=== PATIENT | male | born 1945 | race Caucasian/White ===

== ENCOUNTER 2018-07-22 12:01 | Day surgery (SDC) | payer MEDICARE, BC ==
[2018-07-19 16:37] VITALS: BMI 29.1
[~2018-07-22 12:01] MED LIST: LACTATED RINGERS 1,000 ML IV SCH
[2018-07-22 13:17] VITALS: RESP 16; TEMP 98.1
[2018-07-22] MEDS ORDERED: PROPOFOL 10 MG/ML 20 ML VIAL IV ONE (14:04)
--- NOTE | 2018-07-22 14:24 | P.PCN ---
Date of Procedure: 07/22/18 Procedure(s) Performed: BRIEF HISTORY: Patient is a 73-year-old pleasant white male, scheduled for an elective colonoscopy as a part of Hemoccult-positive stool. PROCEDURE PERFORMED: Colonoscopy. PREOPERATIVE DIAGNOSIS: Hemoccult positive stool. IV sedation per Anesthesia. PROCEDURE: After informed consent was obtained, the patient, was brought into the endoscopy unit. IV sedation was administered by Anesthesia under continuous monitoring. Digital rectal examination was normal. Initially the Olympus CF- 160 flexible video colonoscope was then inserted in the rectum, gradually advanced into the cecum without any difficulty. Careful examination was performed as the scope was gradually being withdrawn. Ileocecal valve and the appendiceal orifice were visualized and appeared normal. Prep was excellent. Mucosa of the cecum, ascending colon, transverse colon, descending colon, sigmoid colon, and rectum appeared normal. Sigmoid diverticulosis. Retroflexion was performed in the rectum and no lesions were seen. The patient tolerated the procedure well. IMPRESSION: Normal-appearing colon from rectum to cecum with no evidence of colorectal neoplasia. Scattered sigmoid diverticulosis RECOMMENDATIONS: Findings of this examination were discussed with the patient as well as his family. He was advised to have a repeat screening colonoscopy in 10 years..
[2018-07-22 14:33] VITALS: BP 143/81; PULSE 75
== END 2018-07-22 15:20 | disposition home or self-care (01) ==
LOC: ORWHC2ENDO 12:01
PROVIDERS: ATTEND Internal Medicine Gastroenterology
DX: K57.30 Diverticulosis of large intestine without perforation or abscess without bleeding (principal); R19.5 Other fecal abnormalities; I10 Essential (primary) hypertension; E78.5 Hyperlipidemia, unspecified; H91.90 Unspecified hearing loss, unspecified ear; Z79.82 Long term (current) use of aspirin; Z79.899 Other long term (current) drug therapy; Z88.1 Allergy status to other antibiotic agents
CPT/HCPCS: 45378; J2704

== ENCOUNTER → 2022-06-03 | Outpatient (CLI) | payer MEDICARE, BC ==
--- NOTE | 2022-06-03 17:18 | MR ---
EXAMINATION TYPE: MR knee RT wo con DATE OF EXAM: 06/03/2022 COMPARISON: None HISTORY: Pain inner knee and swelling x 10 months TECHNIQUE: Multiplanar, multisequence imaging of the right knee is performed without IV contrast. FINDINGS: MEDIAL MENISCUS: Focal increased signal posterior horn appears to have some linear extension to the i nferior surface. LATERAL MENISCUS: Anterior and posterior horns are intact without tear. CRUCIATE LIGAMENTS: The anterior and posterior cruciate ligaments are intact and unremarkable. COLLATERAL LIGAMENTS: The medial collateral ligament and lateral collateral ligament complex are inta ct and unremarkable. EXTENSOR MECHANISM: Visualized quadriceps and patellar tendons are intact. EFFUSION: Small size suprapatellar joint effusion. POPLITEAL CYST: No popliteal/scott cyst. TRICOMPARTMENT SPACES: Mild to moderate tricompartment joint space loss and mild spurring. CARTILAGE: Tricompartment articular cartilage is maintained. BONE MARROW SIGNAL: No focal abnormal marrow signal is appreciated. OTHER: Suggestion of some edema or increased signal in the anterior muscular fibers anterior to the fibular head is only partially imaged. IMPRESSION: 1. At least intrasubstance suspect full-thickness tear posterior horn medial meniscus. 2. Small sized suprapatellar joint effusion. 3. 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 4. Intramuscular edema anterior to the fibular head is only partially imaged, correlate for muscular injury or myositis. Consider follow-up MRI leg evaluation to better evaluate and characterize.
== END | disposition home or self-care (01) ==
LOC: RADMRIMAIN 09:18
PROVIDERS: ATTEND Psychiatry & Neurology Neurology
DX: M21.371 Foot drop, right foot (principal)

== ENCOUNTER → 2022-06-10 | Outpatient (CLI) | payer MEDICARE, BC ==
--- NOTE | 2022-06-10 12:48 | XR ---
EXAMINATION TYPE: XR Hip Complete RT, XR femur RT DATE OF EXAM: 06/10/2022 CLINICAL HISTORY: pain TECHNIQUE: AP and frogleg views of the right hip are obtained. AP and lateral views of the right fem ur are also submitted. COMPARISON: None. FINDINGS: There is no acute fracture/dislocation evident. The joint space appears mildly narrowed. The overlying soft tissue appears unremarkable. IMPRESSION: 1. There is no acute fracture or dislocation. ICD 10 NO FRACTURE, INITIAL EVALUATION
== END | disposition home or self-care (01) ==
LOC: RADXRMAIN 11:53
PROVIDERS: ATTEND Psychiatry & Neurology Neurology
DX: R22.41 Localized swelling, mass and lump, right lower limb (principal)
CPT/HCPCS: 73502

== ENCOUNTER → 2023-03-08 | Outpatient (CLI) | payer MEDICARE, BC ==
--- NOTE | 2023-03-16 22:15 | MR ---
EXAMINATION TYPE: MR tib fib RT wo/w con DATE OF EXAM: 03/08/2023 COMPARISON: Femur 06/10/2022 radiograph. Right knee MRI 06/03/2022 HISTORY: 77-year-old male M60.9, RT HIP/THIGH/LOWER LEG/ANKLE/FOOT PAIN, SWELLING, NUMBNESS, AND LIMI JOSE CRUZ MOVEMENT X1 YEAR Technique: Multiplanar, multisequence images of the leg (tibia/fibula) were obtained before and after administration of 10ML mL intravenous Gadavist gadolinium contrast. Coronal and axial images of the contralateral side were obtained for comparison purposes. FINDINGS: There is an oblique tear at the knee involving the posterior horn extending into the body of the medi al meniscus. This was identified on the patient's 06/03/2022 MRI. There is generalized soft tissue swelling within the lower extremity. 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 Both anterior and peroneal compartments of the right leg are edematous and thickened. Some additional mild patchy muscular edema involving the superficial posterior compartment of the leg , probably reactive. No abnormal mass lesion is identified. No acute or healing fracture or suspicious bone marrow placeme nt. IMPRESSION: 1. Marked edematous thickening of both the anterior and lateral muscular compartments of the right le g. 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 No obvious mass lesion is seen compressing the common peroneal nerve near the fibular head/neck. 2. Some additional mild patchy edema is present within the superficial posterior muscular compartment , probably reactive due to altered biomechanics. Correlate to exclude other etiologies such as myosit is and muscle strain.
== END | disposition home or self-care (01) ==
LOC: RADMRIMAIN 18:22
PROVIDERS: ATTEND Internal Medicine Geriatric Medicine
DX: M60.9 Myositis, unspecified (principal); R60.0 Localized edema
CPT/HCPCS: 73720; A9585

== ENCOUNTER → 2023-11-10 | Outpatient (CLI) | payer MEDICARE, BC ==
[2023-11-10 18:56] LABS: BUN/Creat Ratio 19.58 Ratio (12.00-20.00); Blood Urea Nitrogen 23.5 mg/dL (9.0-27.0); Calcium 9.7 mg/dL (8.7-10.3); Carbon Dioxide 22.8 mmol/L (21.6-31.8); Chloride 99 mmol/L (96-109); Glucose 104 mg/dL (70-110); Sodium 139 mmol/L (135-145)
== END | disposition home or self-care (01) ==
LOC: LABWHC1 13:53
PROVIDERS: ATTEND Nurse Practitioner Adult Health
DX: I10 Essential (primary) hypertension (principal)
CPT/HCPCS: 36415; 80048